=== PATIENT | female | born 1960 | race Caucasian/White ===

== ENCOUNTER 2017-02-02 12:41 | Outpatient (CLI) | payer BC ==
--- NOTE | 2017-02-02 15:56 | CT ---
CT ABDOMEN WITH AND WITHOUT IV CONTRAST: CT PELVIS WITH AND WITHOUT IV CONTRAST: 02/02/2017 HISTORY: Acute cystitis. Slow urinary stream. Urinary bladder spasms. Frequent urinary tract infections. COMPARISON: CT abdomen and pelvis from 09/01/2016. FINDINGS: There is a stable, subcentimeter, low density focus seen within the lateral aspect of the right hepa tic lobe, which is faintly visualized on the CT angiogram of the thorax on 07/14/2013. Minimal dependent bibasilar atelectasis is present. The spleen, pancreas, bilateral adrenal glands, kidneys, abdominal aorta, and partially distended ur inary bladder demonstrate a normal CT appearance. Post cholecystectomy changes are noted. There is evidence of a prior hysterectomy. There is colonic diverticulosis. There is no free fluid, fluid collection, or lymphadenopathy seen in the abdomen or pelvis. There h as been no significant interval change compared to the prior exam on 09/01/2016. There is a small hiatal hernia again present. IMPRESSION: 1. No renal or ureteral calculi are seen bilaterally, and there is no hydronephrosis. No enhancing renal mass is visualized. A very small portion of the most distal right ureters are not well seen due to adjacent unopacified structures, but again, no definite ureteral calculus is appreciated. 2. The urinary bladder is incompletely distended but otherwise has a normal CT appearance. 3. Stable, subcentimeter, [id number]-characterize, hypodense lesion, right hepatic lobe. 4. Colonic diverticulosis. 5. Post surgical changes related to cholecystectomy and hysterectomy. POS: [facility]
--- NOTE | 2017-02-02 16:01 | RAD ---
IVP: HISTORY: Hematuria. Urgency. FINDINGS: Glass Bender KUB shows metallic clips overlying the gallbladder fossa. The bowel gas pattern is nonspecifi c. Phleboliths project over the pelvis. Prompt and symmetric nephrograms are present on the early images. The renal outlines are within nor mal limits. There is mild nonspecific distention of each ureter. Fluid-filled urinary bladder is u nremarkable. Post void residual is normal. IMPRESSION: 1. Status post cholecystectomy. 2. No evidence of urinary tract obstruction. POS: [facility]
== END 2017-02-02 12:42 | disposition home or self-care (01) ==
LOC: RAD 12:41
PROVIDERS: ATTEND Urology
DX: N30.01 Acute cystitis with hematuria (principal); R39.15 Urgency of urination; R39.198 Other difficulties with micturition; K76.89 Other specified diseases of liver; K57.30 Diverticulosis of large intestine without perforation or abscess without bleeding; Z90.49 Acquired absence of other specified parts of digestive tract; Z90.710 Acquired absence of both cervix and uterus
CPT/HCPCS: 74178; 74410

== ENCOUNTER 2017-03-15 09:08 | Outpatient (CLI) | payer BC ==
[~2017-03-15 09:08] MED LIST: Gadobenate Dimeglumine 529 MG/1 ML (20ML VIAL) ONE
--- NOTE | 2017-03-15 12:04 | MRI ---
MRI CERVICAL SPINE WITH AND WITHOUT CONTRAST: TECHNIQUE: Multiplanar, multisequential imaging of the cervical spine obtained. Postcontrast images obtained af ter administration of 19 cc MultiHance IV. HISTORY: Urinary incontinence. Urinary urgency. Urinary bladder spasm. FINDINGS: The cervical vertebrae maintain normal height and alignment. Disk spaces are normally maintained. N o vertebral body edema or signal abnormality is seen. There is a very mild disk bulge seen at C5-6 m inimally flattening the thecal sac. The anterior subarachnoid space is preserved. No significant di sk bulge is seen at any of the other levels of the cervical spine. No central canal or foraminal merna nosis seen. The cervical cord signal is normal. There is no abnormal enhancement identified. IMPRESSION: Unremarkable MRI of cervical spine. POS: [facility]
== END 2017-03-15 09:09 | disposition home or self-care (01) ==
LOC: SCSMRI 09:08
PROVIDERS: ATTEND Student in an Organized Health Care Education/Training Program
DX: R39.15 Urgency of urination (principal); R32 Unspecified urinary incontinence
CPT/HCPCS: 72156; A9579

== ENCOUNTER 2017-03-27 10:35 | Outpatient (CLI) | payer BC ==
[2017-03-27 11:42] LABS: #Eosinphils 0.1 thou/uL (0.0-0.7); #Lymphocytes 1.7 thou/uL (1.20-3.40); #Monocytes 0.4 thou/uL (0.11-0.59); #Neutrophils 2.9 thou/uL (1.40-6.50); %Basophils 0.4 % (0.0-1.0); %Eosinophils 2.7 % (0.0-10.0); %Lymphocytes 33.1 % (21.0-51.0); %Monocytes 7.4 % (0.0-10.0); Hematocrit 41.4 % (36.0-47.0); Mean Platelet Volume 6.9 fL (7.4-10.4); Red Blood Cell (RBC) Count 4.71 mill/uL (4.20-5.40); White Blood Cell (WBC) Count 5.2 thou/uL (4.8-10.8)
[2017-03-27 12:07] LABS: Anion Gap 14 mmol/L (10-20); BUN (Urea Nitrogen) 13 mg/dL (9.8-20.1); Calc. Creatinine Clearance 0 mL/min (70-130); Calcium 9.7 mg/dL (7.8-10.44); Carbon Dioxide 28 mmol/L (22-29); Chloride 103 mmol/L (98-107); Estimated GFR-MDRD 85
== END 2017-03-27 10:36 | disposition home or self-care (01) ==
LOC: LABBT 10:35
PROVIDERS: ATTEND Orthopaedic Surgery Hand Surgery
DX: Z01.812 Encounter for preprocedural laboratory examination (principal)
CPT/HCPCS: 80048; 84703; 85025

== ENCOUNTER 2017-03-28 13:34 | Day surgery (SDC) | payer BC ==
[2017-03-27 10:50] VITALS: BMI 31.8
[2017-03-28] MEDS ORDERED: Dexamethasone 20 MG/5 ML VIAL ONE (16:40)
[2017-03-28] MEDS ORDERED: Propofol 200 MG/20 ML VIAL ONE (16:40)
[2017-03-28] MEDS ORDERED: Ondansetron HCl/PF 4 MG/2 ML Vial ONE ×2 (16:40→21:58)
[2017-03-28] MEDS ORDERED: Ketorolac Tromethamine 30 MG/ML VIAL ONE ×2 (16:40→21:23)
[2017-03-28] MEDS ORDERED: Lidocaine 1% PF 5 ML VIAL ONE (16:40)
[2017-03-28] MEDS ORDERED: Clindamycin/D5W 600 mg/50 ml Premix Bag ONE (17:15)
[2017-03-28] MEDS ORDERED: Fentanyl 100 MCG/2 ML VIAL ONE ×2 (19:19→21:23)
[2017-03-28] MEDS ORDERED: Midazolam HCl 2 mg/2 ml Vial ONE (19:19)
[2017-03-28] MEDS ORDERED: Bupivacaine PF 0.5% 30 ML VIAL ONE (19:24)
[2017-03-28] MEDS ORDERED: Betamet Acet/Betamet Na Ph 30 MG/5 ML VIAL ONE (19:24)
[2017-03-28] MEDS ORDERED: Bacitracin Zinc Ointment 30 gm TUBE ONE (19:24)
[2017-03-28] MEDS ORDERED: Sodium Chloride 0.9% 10 ML ONE (19:25)
--- NOTE | 2017-03-29 09:12 | OP ---
DATE OF PROCEDURE: 03/28/2017 PREOPERATIVE DIAGNOSES: Left ring finger, digital nerve neuritis, distant phalangeal joint level wit h cyst ganglion from the same joint. POSTOPERATIVE DIAGNOSES: Left ring finger, digital nerve neuritis, distant phalangeal joint level wi th cyst ganglion from the same joint. FINDINGS: A 4-mm ganglion, radial aspect between the flexor tendon of the radial edge and sheath jus t proximal to the distal shahid gave a 4-4.5 mm with a slight blue domed hematoma over and the nerve being pushed slightly ulnarly. PROCEDURES: 1. Insertion of flexor tendon sheath with small joint arthrotomy. 2. Ulnar digital nerve neuroplasty of the left ring finger. SPECIMEN SENT: A 4-cm ulnar cyst volar distal phalangeal joint, left ring finger. SURGERY: Shreyas Llamas MD WEATHERIZATION COORDINATOR: Kris Salguero, certified personal chef. COMPLICATIONS: None. TOURNIQUET TIME: 22 minutes. INJECTABLE: 3 mL of 0.5% Marcaine dripped over the digital nerve at the site of the procedure and th en last but not least 8 mL of 0.5% Marcaine block metacarpophalangeal joint level prior to making an incision. DESCRIPTION OF PROCEDURE: After successful general LMA technique, the limb was prepped and draped. Timeout was done. We augmented the anesthesia with 8 mL of 0.5% Marcaine block with epinephrine as l isted above. After this, patient then had a zigzag incision made from the center point of the middle of the middle phalanx ulnarly to the corner of the distal phalangeal joint crease and then 5-6 mm distal to this, centered on the mass as outlined via palpation at the time of exsanguination of the limb. Carried th rough skin and subcutaneous tissue initially, saw a blue domed cystic area and we began dissection of the area decompressed with some small gelatinous fluid and we then performed a full neuroplasty of b oth nerves to make sure there was no other mass, but it was the neuroplasty on the ulnar side had to be complete because the mass was under the nerve. We then retracted the nerve gently with a , f ollowed the cystic cavity down to where entered the ulnar aspect of the tendon sheath just proximal t o the distal shahid, lifted up the shahid and the tendon and followed this corners of the joint, made a little 2-mm hole in the joint surface with a tenotomy scissor and lifted out to the sessile mass, but cyst on en casimiro sac only. We then placed 3 mL of Celestone on the digital nerve on this side, palpation and visualization revea led no other masses. Tourniquet deflated. Hemostasis obtained. Wound was closed with interrupted 5 -0 nylon simple stitch. Bulky dressing was applied to include a wrap around the wrist, it would not fall down and the patient left the operating room without evidence of anesthetic or operative complic ation.
== END 2017-03-28 22:26 | disposition home or self-care (01) ==
LOC: SDC 13:34
PROVIDERS: ATTEND Orthopaedic Surgery Hand Surgery
PROC: 0RCV0ZZ Extirpation of Matter from Left Metacarpophalangeal Joint, Open Approach (ICD-10-PCS; principal; 2017-03-28)
PROC: 01S40ZZ Reposition Ulnar Nerve, Open Approach (ICD-10-PCS; principal; 2017-03-28)
DX: M79.89 Other specified soft tissue disorders (principal); I65.29 Occlusion and stenosis of unspecified carotid artery; E03.9 Hypothyroidism, unspecified; E78.5 Hyperlipidemia, unspecified; G43.109 Migraine with aura, not intractable, without status migrainosus; G47.33 Obstructive sleep apnea (adult) (pediatric); Z79.82 Long term (current) use of aspirin; Z79.899 Other long term (current) drug therapy; Z86.14 Personal history of Methicillin resistant Staphylococcus aureus infection; Z88.8 Allergy status to other drugs, medicaments and biological substances; Z88.5 Allergy status to narcotic agent; Z88.2 Allergy status to sulfonamides; Z82.3 Family history of stroke; Z82.49 Family history of ischemic heart disease and other diseases of the circulatory system; Z90.710 Acquired absence of both cervix and uterus; Z98.890 Other specified postprocedural states; Z99.89 Dependence on other enabling machines and devices
CPT/HCPCS: 88304; 96372; 96374; A4216; J0702; J1100; J1885; J2001; J2250; J2405; J2704; J3010; J3490; S0020

== ENCOUNTER 2017-12-25 11:01 | Outpatient (CLI) | payer BC | END 2017-12-25 11:02 | disposition home or self-care (01) | LOC: BICMAMMO 11:01 | PROVIDERS: ATTEND Family Medicine | DX: Z12.31 Encounter for screening mammogram for malignant neoplasm of breast (principal) | CPT/HCPCS: 77063; 77067 ==

== ENCOUNTER 2018-05-15 08:34 | Outpatient (CLI) | payer BC ==
--- NOTE | 2018-05-15 12:00 | CT ---
CT ABDOMEN WITH CONTRAST: History: Upper abdominal pain x 2 months. Previous cholecystectomy. Assess common bile duct. Comparison: None. FINDINGS: The lung bases are clear. Normal heart size. Visualized aorta is unremarkable. There is symmetric at tenuation of the psoas muscles. Gallbladder is surgically absent. The visualized common duct does not appear to be enlarged. Based on the coronal images, the common duct appears to be approximately 6 mm . Portal vein is patent. Hypodensity in the right hepatic lobe is statistically favored to be a cyst. Spleen, pancreas, and adrenal glands are unremarkable. There is mild splenomegaly with a craniocauda l dimension of 13.4 cm. No gastrohepatic, retrocrural or periportal lymphadenopathy. Visualized mesentery demonstrates multiple thick, mildly enlarged lymph nodes. Correlate for mesenter ic lymphadenitis. No mass, free air or free fluid. Symmetric enhancement of the kidneys. No obstructive uropathy. Neither ureter is seen in its entirety . Gastric mucosa duodenum and multiple normal caliber small bowel loops are noted. Ileocecal junction is normal. Cecal apex is not included on this examination. Visualized colon is unremarkable. Limited evaluation of the descending colon due to inadequate distention. There is diverticulosis, without ev idence of diverticulitis. Small hiatal hernia is noted. IMPRESSION: No definite acute abnormality in the abdomen. POS: [facility]
== END 2018-05-15 08:35 | disposition home or self-care (01) ==
LOC: SCSCT 08:34
PROVIDERS: ATTEND Family Medicine
DX: R10.10 Upper abdominal pain, unspecified (principal)
CPT/HCPCS: 74160

== ENCOUNTER 2019-01-06 12:54 | Outpatient (CLI) | payer BC ==
--- NOTE | 2019-01-06 15:50 | MMO ---
Bilateral MAMMO Bilat Screen [facility]. CLINICAL HISTORY: Patient is 58 years old and is seen for screening. The patient has no family history of breast cancer. The patient has no personal history of cancer. VIEWS: The views performed were: bilateral craniocaudal with tomosynthesis and bilateral mediolateral oblique with tomosynthesis. FILMS COMPARED: The present examination has been compared to prior imaging studies performed at [facility] on 05/27/2014, 09/02/2015, 09/29/2016 and 12/25/2017. This study has been interpreted with the assistance of computer-aided detection. MAMMOGRAM FINDINGS: There are scattered fibroglandular densities. There are no suspicious masses, suspicious calcifications, or new areas of architectural distortion. IMPRESSION: THERE IS NO MAMMOGRAPHIC EVIDENCE OF MALIGNANCY. A ROUTINE FOLLOW-UP MAMMOGRAM IN 1 YEAR IS RECOMMENDED. THE RESULTS OF THIS EXAM WERE SENT TO THE PATIENT. ACR BI-RADS Category 1 - Negative MAMMOGRAPHY NOTE: 1. A negative mammogram report should not delay a biopsy if a dominant of clinically suspicious mass is present. 2. Approximately 10% to 15% of breast cancers are not detected by mammography. 3. Adenosis and dense breasts may obscure an underlying neoplasm. Reported by: JULIA HAMEED MD Electonically Signed: [id number]
== END 2019-01-06 12:55 | disposition home or self-care (01) ==
LOC: BICMAMMO 12:54
PROVIDERS: ATTEND Family Medicine
DX: Z12.31 Encounter for screening mammogram for malignant neoplasm of breast (principal)
CPT/HCPCS: 77063; 77067

== ENCOUNTER 2021-01-05 15:27 | Outpatient (CLI) | payer BC | END 2021-01-05 15:28 | disposition home or self-care (01) | LOC: BICMAMMO 15:27 | PROVIDERS: ATTEND Family Medicine | DX: Z12.31 Encounter for screening mammogram for malignant neoplasm of breast (principal) | CPT/HCPCS: 77063; 77067 ==

== ENCOUNTER 2022-03-02 11:04 | Outpatient (CLI) | payer BC | END 2022-03-02 11:05 | disposition home or self-care (01) | LOC: SCSRAD 11:04 | PROVIDERS: ATTEND Family Medicine | DX: S43.52XA Sprain of left acromioclavicular joint, initial encounter (principal) ==